=== PATIENT | male | born 1995 | race Caucasian/White ===

== ENCOUNTER 2016-12-30 21:55 | Emergency (ER) | payer OTHER ==
[~2016-12-30] VITALS: Ht 190.5 cm; Wt 152.0 kg
--- NOTE | 2016-12-30 22:08 | NUR ---
PT PRESENTED TO THE ER WITH A C/O RT LOWER BACK PAIN X3 HRS. PT STATED THAT HE HAS ALSO NOT BEEN ABLE TO URINATE X 3HRS. PT STATED THAT THE PAIN MOVED FROM THE SIDE TO THE BACK
[2016-12-30] MEDS ORDERED: KETOROLAC TROMETHAMINE INJ 30 MG/ML VIAL ONE (22:50)
[2016-12-30] MEDS ORDERED: ONDANSETRON HCL/PF 4 MG/2 ML VIAL ONE (22:50)
[2016-12-30] MEDS ORDERED: IV SET PRIMARY 1 EA INFUS.SET MC ONE (22:50)
[2016-12-30] MEDS ORDERED: IV NS 0.9% 1,000 ML ONE (22:50)
[2016-12-30 22:56] LABS: BASOPHILS % (AUTO) 0.4 % (0.0-2.0); EOSINOPHILS # (AUTO) 0.1 /CMM (0.0-0.7); EOSINOPHILS % (AUTO) 0.9 % (0.0-6.0); HEMATOCRIT 47 % (39-51); HEMOGLOBIN 16.1 g/dL (13.5-17.5); LYMPHOCYTES # (AUTO) 1.2 /CMM (0.8-4.8); LYMPHOCYTES % (AUTO) 12.4 % (20.0-44.0); MEAN CORPUSCULAR HEMOGLOBIN 30 PG (26.0-33.0); MEAN CORPUSCULAR HGB CONC 34 g/dl (31.0-36.0); MEAN CORPUSCULAR VOLUME 88 fL (80-96); MONOCYTES # (AUTO) 0.6 /CMM (0.1-1.30); MONOCYTES % (AUTO) 6.4 % (2.0-12.0); NEUTROPHILS # (AUTO) 7.9 /CMM (1.8-8.9); NEUTROPHILS % (AUTO) 79.9 % (43.0-81.0); PLATELET COUNT (AUTO) 267 /CMM (150-450); RDW COEFFICIENT OF VARIATION 12.9 (11.5-15.0); RED BLOOD CELL COUNT(AUTO) 5.38 MIL/uL (4.5-6.0); WHITE BLOOD COUNT (AUTO) 9.9 K/uL (4.3-11.0)
--- NOTE | 2016-12-30 22:59 | NUR ---
PT REC'D MEDICATION ORDERED.
[2016-12-30] MEDS ORDERED: ONDANSETRON HCL/PF 4 MG/2 ML VIAL IVP ONE (23:00)
[2016-12-30] MEDS ORDERED: IV NS 0.9% 1,000 ML BAG IV ONE (23:00)
[2016-12-30] MEDS ORDERED: KETOROLAC TROMETHAMINE INJ 30 MG/ML VIAL IV ONE (23:00)
[2016-12-30 23:12] LABS: CALCIUM, SERUM 9.5 mg/dL (8.5-10.1); CREATININE 1.2 mg/dL (0.6-1.3); POTASSIUM 3.8 mmol/L (3.5-5.1)
[2016-12-30 23:15] LABS: ALBUMIN 4.3 g/dL (3.4-5.0); BILIRUBIN,DIRECT 0.2 mg/dL (0.0-0.2); TOTAL PROTEIN, SERUM 7.7 g/dL (6.4-8.2)
--- NOTE | 2016-12-30 23:40 | NUR ---
LEFT FOR CT VIA WC.
[2016-12-31] MEDS ORDERED: TAMSULOSIN 0.4 MG CAP.SR.24H ONE (00:39)
--- NOTE | 2016-12-31 00:45 | NUR ---
IV removed. Catheter intact and site benign. Pressure and 4x4 applied to site. No bleeding noted.Patient discharged to home in stable condition. Written and verbal after care instructions given. Patient verbalizes understanding of instruction AND RX. PT AMBULATED OUT WITH A STEADY GAIT. VSS. PT REC'D A COPY OF IMAGING FINDINGS, A STRAINER, AND A STERILE CUP.
[2016-12-31] MEDS ORDERED: TAMSULOSIN 0.4 MG CAP.SR.24H PO ONE (01:00)
[2016-12-31 01:01] VITALS: BP 138/87
== END 2016-12-31 00:45 | disposition home or self-care (01) ==
LOC: ER 22:03
DX: N20.2 Calculus of kidney with calculus of ureter (principal)
CPT/HCPCS: 36415; 80048-TC; 80076-TC; 83690-TC; 85025-TC; A4606; J1885; J2405; J7030; Z7610